=== PATIENT | female | born 1980 | race African-American/Black ===

== ENCOUNTER 2017-06-09 09:00 | Emergency (ER) | payer MEDICAID ==
[~2017-06-09] VITALS: Ht 170.2 cm; Wt 101.6 kg
[2017-06-09 09:09] VITALS: BP 119/64
== END 2017-06-09 10:12 | disposition home or self-care (01) ==
LOC: ER 09:00
DX: S61.210A Laceration without foreign body of right index finger without damage to nail, initial encounter (principal); F12.10 Cannabis abuse, uncomplicated; W25.XXXA Contact with sharp glass, initial encounter; Y93.89 Activity, other specified; Y99.8 Other external cause status; Y92.89 Other specified places as the place of occurrence of the external cause
CPT/HCPCS: 12001